=== PATIENT | female | born 1950 | race Caucasian/White ===

== ENCOUNTER → 2016-12-16 | Outpatient (CLI) | payer MEDICARE, BC | LOC: WI 08:04 | PROVIDERS: ATTEND Family Medicine | DX: Z12.31 Encounter for screening mammogram for malignant neoplasm of breast (principal) ==

== ENCOUNTER → 2017-01-13 | Outpatient (CLI) | payer MEDICARE, BC ==
--- NOTE | 2017-01-13 13:00 | WOMENS IMAGING REPORT ---
EXAM DESCRIPTION: U/S BREAST UNILATERAL, COMPL COMPLETED DATE/TIME: 01/13/2017 9:49 am REASON FOR STUDY: ROUTINE SCREENING;Z12.31 Z12.31 ENCNTR SCREEN MAMMOGRAM FOR MALIGNANT NEOPLASM OF JAMIE COMPARISON: Limited bilateral mammograms 07/09/2015, 01/02/2014, 10/10/2012 TECHNIQUE: Real-time and static grayscale imaging performed of the right and left whole breast. Alda cted color Doppler images recorded. The patient is in a motorized wheelchair and unable to participate with positioning for mammography t erika. LIMITATIONS: None. FINDINGS: Entire right breast and entire left breast for image with ultrasound. There is dense fibr oglandular tissue bilaterally without cysts, masses, or worrisome acoustic absorption. No focal find ings. IMPRESSION: No suspicious findings detected in the right or left breast by ultrasound. BIRAD: 1 Negative. RECOMMENDATION: RECOMMENDED FOLLOW-UP: Follow-up as clinically indicated. COMMENT: The [employer] (ACR) has developed recommendations for screening MRI of the breasts in certain patient populations, to be used in conjunction with mammography. Breast MRI s urveillance may be appropriate for women with more than 20% lifetime risk of developing breast cancer as determined by genetic testing, significant family history of the disease, or history of mantle r adiation for Hodgkins Disease. ACR Practice Guidelines 2008. TECHNICAL DOCUMENTATION: JOB ID: [id number] [employer]- All Rights Reserved
--- NOTE | 2017-01-13 13:00 | WOMENS IMAGING REPORT ---
EXAM DESCRIPTION: U/S BREAST UNILATERAL, COMPL COMPLETED DATE/TIME: 01/13/2017 9:49 am REASON FOR STUDY: ROUTINE SCREENING;Z12.31 Z12.31 ENCNTR SCREEN MAMMOGRAM FOR MALIGNANT NEOPLASM OF JAMIE COMPARISON: Limited bilateral mammograms 07/09/2015, 01/02/2014, 10/10/2012 TECHNIQUE: Real-time and static grayscale imaging performed of the right and left whole breast. Alda cted color Doppler images recorded. The patient is in a motorized wheelchair and unable to participate with positioning for mammography t erika. LIMITATIONS: None. FINDINGS: Entire right breast and entire left breast for image with ultrasound. There is dense fibr oglandular tissue bilaterally without cysts, masses, or worrisome acoustic absorption. No focal find ings. IMPRESSION: No suspicious findings detected in the right or left breast by ultrasound. BIRAD: 1 Negative. RECOMMENDATION: RECOMMENDED FOLLOW-UP: Follow-up as clinically indicated. COMMENT: The [employer] (ACR) has developed recommendations for screening MRI of the breasts in certain patient populations, to be used in conjunction with mammography. Breast MRI s urveillance may be appropriate for women with more than 20% lifetime risk of developing breast cancer as determined by genetic testing, significant family history of the disease, or history of mantle r adiation for Hodgkins Disease. ACR Practice Guidelines 2008. TECHNICAL DOCUMENTATION: JOB ID: [id number] [employer]- All Rights Reserved
== END ==
LOC: WI 07:54
PROVIDERS: ATTEND Family Medicine
DX: Z12.31 Encounter for screening mammogram for malignant neoplasm of breast (principal)
CPT/HCPCS: 76641

== ENCOUNTER 2018-04-30 15:41 | Inpatient (IN) | payer MEDICARE, BC ==
[2018-04-30] MEDS ORDERED: ONDANSETRON HCL INJ/PF 4 MG/2 ML SDV IV ONE ×2 (16:24→21:45)
[2018-04-30] MEDS ORDERED: NORMAL SALINE 1000 ML 1,000 ML IV ONE (16:24)
--- NOTE | 2018-04-30 17:29 | RADIOLOGY REPORT (SQ) ---
EXAM DESCRIPTION: CHEST SINGLE VIEW COMPLETED DATE/TIME: 04/30/2018 5:17 pm REASON FOR STUDY: abd bloating, vomiting COMPARISON: 03/13/2014 EXAM PARAMETERS: NUMBER OF VIEWS: 10 obscures the upper chest. TECHNIQUE: Single frontal radiographic view of the chest acquired. RADIATION DOSE: NA LIMITATIONS: None. FINDINGS: LUNGS AND PLEURA: Basilar atelectasis. MEDIASTINUM AND HILAR STRUCTURES: Large retrocardiac hiatal hernia. HEART AND VASCULAR STRUCTURES: Heart normal in size. Normal vasculature. BONES: No acute findings. HARDWARE: None in the chest. OTHER: No other significant finding. IMPRESSION: Basilar atelectasis. Large hiatal hernia. TECHNICAL DOCUMENTATION: JOB ID: [id number] [employer]- All Rights Reserved Reading location - IP/workstation name: [email or web address]
--- NOTE | 2018-04-30 17:48 | RADIOLOGY REPORT (SQ) ---
EXAM DESCRIPTION: CT ABD/PELVIS NO ORAL OR IV COMPLETED DATE/TIME: 04/30/2018 5:12 pm REASON FOR STUDY: abd bloating, vomiting COMPARISON: None. TECHNIQUE: CT scan of the abdomen and pelvis performed without intravenous or oral contrast. Images reviewed with lung, soft tissue, and bone windows. Reconstructed coronal and sagittal MPR images revi ewed. All images stored on PACS. All CT scanners at this facility use dose modulation, iterative reconstruction, and/or weight based d osing when appropriate to reduce radiation dose to as low as reasonably achievable (ALARA). [facility]: Dose Right [facility]: CareDose [facility]: Dose Right [facility]: Teradose 4D [facility]: Smart Rightware [place] RADIATION DOSE: CT Rad equipment meets quality standard of care and radiation dose reduction techniq ues were employed. CTDIvol: 6.4 mGy. DLP: 272 mGy-cm.mGy. LIMITATIONS: None. FINDINGS: LOWER CHEST: There is a large hiatal hernia with an intrathoracic stomach. Atelectatic ch anges are seen at the bilateral lung bases. Tree-in-bud opacities are noted at the right middle lobe . NON-CONTRASTED LIVER, SPLEEN, ADRENALS: Evaluation limited by lack of IV contrast. No identified sign ificant masses. Calcific foci at the spleen are probably granulomas PANCREAS: No peripancreatic inflammatory changes. GALLBLADDER: The gallbladder is distended. Multiple small stones are seen at the gallbladder. RIGHT KIDNEY AND URETER: Assessment for masses limited by lack of IV contrast. No significant calci fications. No hydronephrosis or hydroureter. LEFT KIDNEY AND URETER: Assessment for masses limited by lack of IV contrast. No significant calcif ications. No hydronephrosis or hydroureter. AORTA AND RETROPERITONEUM: No abdominal aortic aneurysm. No retroperitoneal hemorrhage or adenopathy. BOWEL AND PERITONEAL CAVITY: There are multiple dilated small bowel loops with air-fluid levels. Col lapsed loops of small bowel are seen in the pelvis. There is a left lower quadrant ostomy with a par astomal hernia containing a mildly dilated small bowel loop. Postsurgical changes are seen at bowel loops in the pelvis. Trace free fluid noted at the right upper quadrant. APPENDIX: Not visualized. PELVIS, BLADDER, AND ABDOMINAL WALL:The urinary bladder is surgically absent. Coarse calcifications noted at the pelvis. No free fluid. There is a right lower quadrant ostomy. BONES: There is diffuse osteopenia. There is thoracolumbar scoliosis. There is fusion of the left h ip. IMPRESSION: 1. Air-fluid levels within multiple dilated small bowel loops, raise concern for distal small bowel obstruction. Left lower quadrant ostomy with a parastomal hernia containing a mildly di lated small bowel loop. 2. Distended gallbladder with cholelithiasis. 3. Trace ascites at the right upper quadrant. 4. Large hiatal hernia with an intrathoracic stomach. 5. Tree-in-bud opacities at the right middle lobe, may be secondary to acute infection/inflammation o f the smaller airways. COMMENT: Quality ID # [id number]: Final reports with documentation of one or more dose reduction techniques (e.g., Automated exposure control, adjustment of the mA and/or kV according to patient size, use of iterative reconstruction technique) TECHNICAL DOCUMENTATION: JOB ID: [id number] [employer]- All Rights Reserved Reading location - IP/workstation name: [email or web address]
[2018-04-30] MEDS ORDERED: ONDANSETRON HCL INJ/PF 4 MG/2 ML SDV ONE ×2 (18:33→21:42)
[2018-04-30 18:38] LABS: HEMATOCRIT 42.6 % (36.0-47.0); HEMOGLOBIN 13.9 g/dL (12.0-15.5); MEAN CORPUSCULAR HGB CONC 32.6 g/dL (32.0-36.0); MEAN CORPUSCULAR VOLUME 86 fl (80-97); PLATELET COUNT 513 10^3/uL (150-450); RED BLOOD COUNT 4.96 10^6/uL (3.72-5.28); RED CELL DISTRIBUTION WIDTH 14.7 % (11.5-14.0); WHITE BLOOD COUNT 21.3 10^3/uL (4.0-10.5)
[2018-04-30 18:48] LABS: ALANINE AMINOTRANSFERASE 25 U/L (9-52); ALBUMIN 3.7 g/dL (3.5-5.0); ALKALINE PHOSPHATASE 129 U/L (38-126); ANION GAP 11 (5-19); ASPARTATE AMINO TRANSFERASE 21 U/L (14-36); BILIRUBIN,DIRECT 0.6 mg/dL (0.0-0.4); BILIRUBIN,TOTAL 0.8 mg/dL (0.2-1.3); BLOOD UREA NITROGEN 10 mg/dL (7-20); CALCIUM 9.6 mg/dL (8.4-10.2); CARBON DIOXIDE 26 mmol/L (22-30); CHLORIDE 100 mmol/L (98-107); GLUCOSE 116 mg/dL (75-110); LIPASE 15.9 U/L (23-300); POTASSIUM 3.8 mmol/L (3.6-5.0); SODIUM 137.3 mmol/L (137-145); TOTAL PROTEIN 6.9 g/dL (6.3-8.2)
[2018-04-30 18:54] LABS: ABSOLUTE LYMPHOCYTES# (MANUAL) 2.3 10^3/uL (0.5-4.7); ABSOLUTE MONOCYTES # (MANUAL) 0.6 10^3/uL (0.1-1.4); ABSOLUTE NEUTROPHILS# (MANUAL) 18.1 10^3/uL (1.7-8.2); BASOPHILS % (MANUAL) 0 % (0-2); EOSINOPHILS % (MANUAL) 1 % (0-6); LYMPHOCYTES % (MANUAL) 9 % (13-45); MONOCYTES % (MANUAL) 3 % (3-13); SEGMENTED NEUTROPHILS % (MAN) 85 % (42-78); TOTAL CELLS COUNTED 100
[2018-04-30 18:57] LABS: TOXIC GRANULATION 1+
[2018-04-30 18:58] LABS: HYPOCHROMASIA SLIGHT; PLATELET COMMENT INCREASED
[2018-04-30] MEDS ORDERED: CEFEPIME 1 GM/D5W RTU 1 GM/50 ML RTUPB IV ONE (19:47)
[2018-04-30] MEDS ORDERED: VANCOMYCIN HCL INJ 1000 MG VIAL IV ONE (19:48)
--- NOTE | 2018-04-30 20:10 | PDOC CONSULTATION ---
Consultation Consult Date: 04/30/18 Consult reason:: Possible bowel obstruction seen on CT scan. History of Present Illness Admission Date/PCP: NAA ALDANA MD History of Present Illness: ANIKET GARCIA is a 67 year old female seen in consultation at the request of the emergency room physician. This is a patient with cerebral palsy who reports coughing and vomiting. The patient has reported malaise and fatigue for the last several days. The patient has a left lower quadrant descending colostomy. The patient has emptied her colostomy bag 4 times today. There is currently air in the bag. The patient reports vomiting after severe coughing spells. The patient has not noticed significant fevers or chills. The patient denies chest pain, abdominal pain, dizziness, blurry vision. The patient does report lower extremity edema. She denies specific food intolerances. Past Medical History Cardiac Medical History: Reports: Atrial Fibrillation, Hypertension Pulmonary Medical History: Reports: Asthma, Chronic Obstructive Pulmonary Disease (COPD) Denies: Tuberculosis Neurological Medical History: Reports: Other - Cerebral palsy Denies: Seizures GI Medical History: Reports: Gastroesophageal Reflux Disease, Hiatal Hernia Psychiatric Medical History: Reports: Depression Past Surgical History Past Surgical History: Reports: Orthopedic Surgery - multiple ortho surgeries rt cp, Other - Left lower quadrant colostomy. Urostomy. Denies: Hysterectomy Social History Information Source: Patient Smoking Status: Unknown if Ever Smoked Frequency of Alcohol Use: None Hx Recreational Drug Use: No Hx Prescription Drug Abuse: No Family History Family History: Reviewed & Not Pertinent Parental Family History Reviewed: Yes Children Family History Reviewed: Yes Sibling(s) Family History Reviewed.: Yes Medication/Allergy Home Medications: Celecoxib [Celebrex 100 mg Capsule] 100 mg PO BID 02/09/13 Oxybutynin Chloride [Ditropan 5 mg Tablet] 10 mg PO Q8 PRN 02/09/13 Cyclobenzaprine HCl [Flexeril 10 mg Tablet] 20 mg PO TID PRN 02/10/13 Tramadol HCl [Ultram 50 mg Tablet] 50 mg PO Q6HP PRN 02/10/13 Diltiazem HCl [Cardizem Cd 180 mg Capsule] 180 mg PO Q12H 02/12/13 Duloxetine HCl [Cymbalta 30 mg Capsule.dr] 60 mg PO DAILY #0 capsule.dr Topiramate [Topamax 25 mg Tablet] 25 mg PO Q6 #0 tablet 02/12/13 Buprenorphine [Butrans] 1 each TD Q7D 03/11/14 Cetirizine HCl [Zyrtec 10 mg Tablet] 1 tab PO DAILY 03/11/14 Esomeprazole Magnesium [Nexium] 40 mg PO BID 03/11/14 Ferrous Sulfate [Iron Supplement] 325 mg PO BID 03/11/14 Linaclotide [Linzess 145 Mcg Capsule] 145 mcg PO Q2D 03/11/14 Lubiprostone [Amitiza 8 Mcg Capsule] 1 cap PO BID 03/11/14 Mometasone Furoate [Nasonex] 2 spray NS DAILY 03/11/14 Montelukast Sodium [Singulair 10 mg Tablet] 10 mg PO QHS 03/11/14 Polyethylene Glycol 3350 [Clearlax] 119 gm PO DAILY 03/11/14 Polyethylene Glycol 3350 [Miralax Powder 17 gm/Packet] 1 packet PO DAILY Albuterol Sulfate [Ventolin Hfa] 2 puff IH Q6HP PRN 03/12/14 Butalb/Acetaminophen/Caffeine [Fioricet (50-325-40 mg) Tablet] 1 tab PO Q6HP PRN 03/12/14 Diazepam [Valium 5 mg Tablet] 10 mg PO BIDP PRN 03/12/14 Fluticasone/Salmeterol [Advair 500-50 Diskus 28 Dose] 1 inh IH Q12H 03/12/14 Guaifenesin [Mucinex Sr 600 mg Tablet.sa] 600 mg PO Q12 PRN 03/12/14 Magnesium Citrate 296 ml PO DAILY PRN 03/12/14 Oxycodone HCl 5 mg PO Q8H PRN 03/12/14 Oxycodone HCl/Acetaminophen [Percocet 5-325 mg Tablet] 1 - 2 tab PO ASDIR PRN Rizatriptan Benzoate [Maxalt Restorative Care Technician] 10 mg PO DAILY PRN 03/12/14 Trazodone HCl 50 mg PO QHS PRN 03/12/14 Fluticasone/Salmeterol [Advair 250-50 Diskus 14 Dose/Diskus] 1 inh IH Q12 #0 inhaler 03/14/14 Moxifloxacin HCl 400 mg PO DAILY #10 tablet 03/14/14 Allergies/Adverse Reactions: morphine [Morphine] Adverse Reaction (Verified 03/11/14 10:58) Review of Systems Constitutional: PRESENT: fatigue, weakness. ABSENT: anorexia, fever(s), headache(s), night sweats Eyes: ABSENT: visual disturbances Ears: ABSENT: hearing changes Nose, Mouth, and Throat: ABSENT: sore throat Cardiovascular: ABSENT: palpitations Respiratory: PRESENT: cough. ABSENT: hemoptysis Gastrointestinal: ABSENT: abdominal pain, bloating Genitourinary: PRESENT: other - Urostomy Musculoskeletal: ABSENT: back pain Integumentary: ABSENT: pruritus, rash Neurological: ABSENT: confusion, convulsions, dizziness Psychiatric: ABSENT: anxiety, depression Endocrine: ABSENT: cold intolerance, heat intolerance Hematologic/Lymphatic: ABSENT: easy bleeding, easy bruising Physical Exam Vital Signs: Intake & Output 04/29/18 04/30/18 05/01/18 06:59 06:59 06:59 Weight 45.359 kg General appearance: ABSENT: no acute distress Head exam: PRESENT: atraumatic Eye exam: PRESENT: EOMI, PERRLA. ABSENT: scleral icterus Mouth exam: PRESENT: moist, neck supple Neck exam: ABSENT: meningismus, tenderness, thyromegaly, tracheal deviation Respiratory exam: PRESENT: rhonchi, unlabored. ABSENT: chest wall tenderness Cardiovascular exam: PRESENT: irregular rhythm GI/Abdominal exam: PRESENT: soft, other - Left lower quadrant colostomy in place. Air in the bag. Lower midline urostomy in place.. ABSENT: distended, firm, guarding, tenderness Rectal exam: PRESENT: deferred Extremities exam: PRESENT: pedal edema, +2 edema, other - Gaiter sign. Musculoskeletal exam: PRESENT: deformity Neurological exam: PRESENT: alert, awake, oriented to person, oriented to place , oriented to time, oriented to situation Psychiatric exam: ABSENT: agitated, anxious, depressed Skin exam: ABSENT: cyanosis, erythema Results Laboratory Results: 04/30/18 18:25 04/30/18 18:25 04/30/18 04/30/18 18:25 18:25 WBC 21.3 H RBC 4.96 Hgb 13.9 Hct 42.6 MCV 86 MCH 28.0 MCHC 32.6 RDW 14.7 H Plt Count 513 H Seg Neutrophils % Not Reportable Lymphocytes % Not Reportable Monocytes % Not Reportable Eosinophils % Not Reportable Basophils % Not Reportable Absolute Neutrophils Not Reportable Absolute Lymphocytes Not Reportable Absolute Monocytes Not Reportable Absolute Eosinophils Not Reportable Absolute Basophils Not Reportable Sodium 137.3 Potassium 3.8 Chloride 100 Carbon Dioxide 26 Anion Gap 11 BUN 10 Creatinine 0.44 L Est GFR ( Amer) > 60 Est GFR (Non-Af Amer) > 60 Glucose 116 H Calcium 9.6 Total Bilirubin 0.8 AST 21 ALT 25 Alkaline Phosphatase 129 H Total Protein 6.9 Albumin 3.7 Lipase 15.9 L Impressions: Chest X-Ray 04/30/18 00:00 IMPRESSION: Basilar atelectasis. Large hiatal hernia. Abdomen/Pelvis CT 04/30/18 16:54 IMPRESSION: 1. Air-fluid levels within multiple dilated small bowel loops, raise concern for distal small bowel obstruction. Left lower quadrant ostomy with a parastomal hernia containing a mildly dilated small bowel loop. 2. Distended gallbladder with cholelithiasis. 3. Trace ascites at the right upper quadrant. 4. Large hiatal hernia with an intrathoracic stomach. 5. Tree-in-bud opacities at the right middle lobe, may be secondary to acute infection/inflammation of the smaller airways. Assessment & Plan - Diagnosis (1) Cerebral palsy Qualifiers: Cerebral palsy type: unspecified type Qualified Code(s): G80.9 - Cerebral palsy, unspecified Is this a current diagnosis for this admission?: Yes (2) Cough Is this a current diagnosis for this admission?: Yes - Plan Summary Plan Summary: This is a 67-year-old female with cerebral palsy. I was consulted to evaluate the possibility of a small bowel obstruction. I see no clinical or radiographic evidence of small bowel obstruction or large bowel obstruction. The "decompressed loops of small bowel in the pelvis" are related to the patient 's urostomy and not in continuity with the GI tract. The patient has air in her colostomy bag and has had multiple bowel movements today. I believe her vomiting is related to her coughing spells. Recommend medical evaluation. No indication for surgical intervention at this time.
[2018-04-30] MEDS ORDERED: DILTIAZEM HCL INJ 25 MG/5 ML VIAL IV ONE (20:18)
[2018-04-30] MEDS ORDERED: IPRATROPIUM/ALBUTEROL 0.5-2.5 MG/3 ML AMPUL NEB PRN (20:19)
[2018-04-30] MEDS ORDERED: GUAIFENESIN SYRP 200 MG/10 ML UDC PO PRN (20:19)
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
[2018-04-30] MEDS ORDERED: NORMAL SALINE 1000 ML 1,000 ML IV SCH (20:30)
[2018-04-30 21:29] LABS: AMORPHOUS SEDIMENT,URINE TRACE /HPF
[2018-04-30] MEDS: HEPARIN SOD (PORCINE) 5,000 UNIT/ML 1 ML SYRINGE SUBCUT SCH (21:30)
[2018-04-30 21:50] LABS: APPEARANCE,URINE CLEAR; BILIRUBIN,URINE NEGATIVE (NEGATIVE); COLOR,URINE YELLOW; GLUCOSE, URINE NEGATIVE (NEGATIVE)
[2018-04-30 21:51] LABS: KETONES,URINE 300 mg/dL (NEGATIVE); NITRITE,URINE NEGATIVE (NEGATIVE); PROTEIN,URINE NEGATIVE (NEGATIVE); URINE SPECIFIC GRAVITY 1.021; UROBILINOGEN,URINE NEGATIVE mg/dL (<2.0)
[2018-04-30 21:52] LABS: LEUKOCYTE ESTERASE,URINE NEGATIVE (NEGATIVE)
[2018-04-30] MEDS: IPRATROPIUM/ALBUTEROL 0.5-2.5 MG/3 ML AMPUL NEB SCH (23:55)
[2018-05-01] MEDS: TRAZODONE HCL 50 MG TABLET PO PRN (00:46)
[2018-05-01] MEDS: TRAMADOL HCL 50 MG TABLET PO PRN (00:46)
[2018-05-01] MEDS: CEFEPIME 2 GM/D5W RTU 2 GM/50 ML RTUPB IV SCH ×3 (01:08→23:36)
[2018-05-01] MEDS: DILTIAZEM HCL 180 MG CAPSULE.CR PO SCH ×3 (01:27→10:08)
[2018-05-01] MEDS: NORMAL SALINE 1000 ML 1,000 ML IV PRN ×2 (01:29→06:49)
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
[2018-05-01 05:44] LABS: ABSOLUTE BASOPHILS # (AUTO) 0.1 10^3/uL (0.0-0.2); ABSOLUTE EOSINOPHILS # (AUTO) 0.1 10^3/uL (0.0-0.6); ABSOLUTE LYMPHOCYTES (AUTO) 2.2 10^3/uL (0.5-4.7); ABSOLUTE NEUT (AUTO) 11.1 10^3/uL (1.7-8.2); BASOPHILS % (AUTO) 0.6 % (0-2); EOSINOPHILS % (AUTO) 0.9 % (0-6); HEMATOCRIT 36.4 % (36.0-47.0); MEAN CORPUSCULAR HEMOGLOBIN 28.3 pg (27.0-33.4); MEAN CORPUSCULAR VOLUME 86 fl (80-97); PLATELET COUNT 378 10^3/uL (150-450); RED BLOOD COUNT 4.26 10^6/uL (3.72-5.28); RED CELL DISTRIBUTION WIDTH 14.4 % (11.5-14.0); SEGMENTED NEUTROPHILS % (AUTO) 76.5 % (42-78); TOTAL CELLS COUNTED % (AUTO) 100 %; WHITE BLOOD COUNT 14.6 10^3/uL (4.0-10.5)
[2018-05-01 06:09] LABS: ANION GAP 7 (5-19); BLOOD UREA NITROGEN 9 mg/dL (7-20); CALCIUM 8.5 mg/dL (8.4-10.2); CARBON DIOXIDE 23 mmol/L (22-30); CHLORIDE 109 mmol/L (98-107); GLUCOSE 86 mg/dL (75-110); POTASSIUM 3.5 mmol/L (3.6-5.0); SODIUM 138.8 mmol/L (137-145)
[2018-05-01] MEDS: HEPARIN SOD (PORCINE) 5,000 UNIT/ML 1 ML SYRINGE SUBCUT SCH ×3 (06:49→23:35)
[2018-05-01] MEDS: IPRATROPIUM/ALBUTEROL 0.5-2.5 MG/3 ML AMPUL NEB SCH ×2 (08:10→16:57)
--- NOTE | 2018-05-01 14:52 | PDOC PROGRESS REPORT ---
Subjective Progress Note for:: 05/01/18 Subjective:: 67 y/o F admitted with pneumonia and cough. She denies any abdominal pain. Her colostomy is functioning normally. She has not had any vomiting today. No CP, SOB, F/C, melena, dizziness. Reason For Visit: PNEUMONIA Physical Exam Vital Signs: Temp Pulse Resp BP Pulse Ox 98.6 F 102 H 16 140/77 H 98 05/01/18 11:20 05/01/18 11:20 05/01/18 11:20 05/01/18 11:20 05/01/18 11:20 Intake & Output 04/30/18 05/01/18 05/02/18 06:59 06:59 06:59 Intake Total 1100 1050 Balance 1100 1050 Weight 47.7 kg General appearance: PRESENT: no acute distress Head exam: PRESENT: atraumatic Eye exam: PRESENT: EOMI. ABSENT: scleral icterus Mouth exam: PRESENT: moist Neck exam: ABSENT: lymphadenopathy, tenderness Respiratory exam: PRESENT: unlabored. ABSENT: accessory muscle use, chest wall tenderness, tachypnea Cardiovascular exam: PRESENT: irregular rhythm Pulses: PRESENT: normal radial pulses Vascular exam: PRESENT: normal capillary refill. ABSENT: pallor GI/Abdominal exam: PRESENT: soft. ABSENT: distended, guarding, tenderness Rectal exam: PRESENT: deferred Musculoskeletal exam: PRESENT: deformity Neurological exam: PRESENT: alert, awake, oriented to person, oriented to place , oriented to time, oriented to situation Psychiatric exam: ABSENT: agitated, anxious, depressed Skin exam: ABSENT: cyanosis, erythema, jaundice Results Laboratory Results: 05/01/18 04:36 05/01/18 04:36 04/30/18 05/01/18 05/01/18 20:52 04:36 04:36 WBC 14.6 H RBC 4.26 Hgb 12.0 Hct 36.4 MCV 86 MCH 28.3 MCHC 33.0 RDW 14.4 H Plt Count 378 Seg Neutrophils % 76.5 Lymphocytes % 15.0 Monocytes % 7.0 Eosinophils % 0.9 Basophils % 0.6 Absolute Neutrophils 11.1 H Absolute Lymphocytes 2.2 Absolute Monocytes 1.0 Absolute Eosinophils 0.1 Absolute Basophils 0.1 Sodium 138.8 Potassium 3.5 L Chloride 109 H Carbon Dioxide 23 Anion Gap 7 BUN 9 Creatinine 0.38 L Est GFR ( Amer) > 60 Est GFR (Non-Af Amer) > 60 Glucose 86 Calcium 8.5 Urine Color YELLOW Urine Appearance CLEAR Urine pH 6.0 Ur Specific [place] 1.021 Urine Protein NEGATIVE Urine Glucose (UA) NEGATIVE Urine Ketones 300 H Urine Blood NEGATIVE Urine Nitrite NEGATIVE Ur Leukocyte Esterase NEGATIVE Urine WBC (Auto) 133 Urine RBC (Auto) 1 05/01/18 04:36 NT-Pro-B Natriuret Pep 254 Impressions: Chest X-Ray 04/30/18 00:00 IMPRESSION: Basilar atelectasis. Large hiatal hernia. Abdomen/Pelvis CT 04/30/18 16:54 IMPRESSION: 1. Air-fluid levels within multiple dilated small bowel loops, raise concern for distal small bowel obstruction. Left lower quadrant ostomy with a parastomal hernia containing a mildly dilated small bowel loop. 2. Distended gallbladder with cholelithiasis. 3. Trace ascites at the right upper quadrant. 4. Large hiatal hernia with an intrathoracic stomach. 5. Tree-in-bud opacities at the right middle lobe, may be secondary to acute infection/inflammation of the smaller airways. Assessment & Plan - Diagnosis (1) Cerebral palsy Qualifiers: Cerebral palsy type: unspecified type Qualified Code(s): G80.9 - Cerebral palsy, unspecified Is this a current diagnosis for this admission?: Yes (2) Cough Is this a current diagnosis for this admission?: Yes - Plan Summary Plan Summary: 67 y/o F with concern for bowel obstruction on CT. Colostomy functioning normally. No nausea overnight. No abdominal tenderness. Still has cough. OK for diet. No surgical intervention at this time.
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
[2018-05-01] MEDS: ONDANSETRON HCL INJ/PF 4 MG/2 ML SDV IV PRN ×2 (16:31→23:09)
[2018-05-01] MEDS: OXYCODONE HCL IR 5 MG TABLET PO PRN (19:11)
[2018-05-02] MEDS: TRAZODONE HCL 50 MG TABLET PO PRN ×2 (00:52→21:56)
[2018-05-02] MEDS: IPRATROPIUM/ALBUTEROL 0.5-2.5 MG/3 ML AMPUL NEB SCH ×4 (02:03→23:53)
[2018-05-02 05:36] LABS: ABSOLUTE BASOPHILS # (AUTO) 0.1 10^3/uL (0.0-0.2); ABSOLUTE EOSINOPHILS # (AUTO) 0.1 10^3/uL (0.0-0.6); ABSOLUTE LYMPHOCYTES (AUTO) 1.3 10^3/uL (0.5-4.7); ABSOLUTE MONOCYTES (AUTO) 0.8 10^3/uL (0.1-1.4); ABSOLUTE NEUT (AUTO) 11.2 10^3/uL (1.7-8.2); BASOPHILS % (AUTO) 0.8 % (0-2); EOSINOPHILS % (AUTO) 0.4 % (0-6); HEMATOCRIT 36.4 % (36.0-47.0); HEMOGLOBIN 12.2 g/dL (12.0-15.5); LYMPHOCYTES % (AUTO) 9.8 % (13-45); MEAN CORPUSCULAR HEMOGLOBIN 28.5 pg (27.0-33.4); MEAN CORPUSCULAR HGB CONC 33.4 g/dL (32.0-36.0); MEAN CORPUSCULAR VOLUME 85 fl (80-97); MONOCYTES % (AUTO) 5.7 % (3-13); PLATELET COUNT 478 10^3/uL (150-450); RED BLOOD COUNT 4.28 10^6/uL (3.72-5.28); RED CELL DISTRIBUTION WIDTH 14.3 % (11.5-14.0); SEGMENTED NEUTROPHILS % (AUTO) 83.3 % (42-78); TOTAL CELLS COUNTED % (AUTO) 100 %; WHITE BLOOD COUNT 13.5 10^3/uL (4.0-10.5)
[2018-05-02] MEDS: HEPARIN SOD (PORCINE) 5,000 UNIT/ML 1 ML SYRINGE SUBCUT SCH ×3 (05:52→21:50)
[2018-05-02] MEDS: OXYCODONE HCL IR 5 MG TABLET PO PRN (05:53)
[2018-05-02 06:14] LABS: ANION GAP 13 (5-19); BLOOD UREA NITROGEN 6 mg/dL (7-20); CALCIUM 9.5 mg/dL (8.4-10.2); CARBON DIOXIDE 20 mmol/L (22-30); CHLORIDE 108 mmol/L (98-107); GLUCOSE 110 mg/dL (75-110); POTASSIUM 3.1 mmol/L (3.6-5.0); SODIUM 140.9 mmol/L (137-145)
[2018-05-02] MEDS: ONDANSETRON HCL INJ/PF 4 MG/2 ML SDV IV PRN ×2 (08:15→18:33)
[2018-05-02] MEDS ORDERED: DEXTROSE 5%-1/2 NORMAL SALINE 1,000 ML IV PRN (08:16)
[2018-05-02] MEDS ORDERED: POTASSIUM CHLORIDE 10 MEQ CAPSULE.ER PO ONE (09:00)
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
[2018-05-02] MEDS: CEFEPIME 2 GM/D5W RTU 2 GM/50 ML RTUPB IV SCH ×2 (10:31→21:51)
[2018-05-02] MEDS ORDERED: POTASSI CL 20 MEQ/50 ML RIDER 20 MEQ/50 ML RTUPB IV SCH (11:00)
[2018-05-02] MEDS: POTASSIUM CHLORIDE 20 MEQ/50 ML RTU IV SCH ×4 (12:09→20:10)
[2018-05-02] MEDS ORDERED: GLUCAGON,HUMAN RECOMB 1 MG INJ SUBCUT PRN (16:33)
[2018-05-02] MEDS ORDERED: DEXTROSE 40% GEL 15 GM TUBE PO PRN ×2 (16:33)
[2018-05-02] MEDS ORDERED: DEXTROSE 50%-WATER 25 GM/50 ML DISP.SYRIN IV PRN ×2 (16:33)
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
[2018-05-02] MEDS: BACLOFEN 10 MG TABLET PO SCH (17:16)
[2018-05-02] MEDS: NYSTATIN 500000 UNIT/5 ML UDCUP PO SCH (17:23)
[2018-05-02] MEDS: LANSOPRAZOLE 30 MG TAB.RAP.DR PO SCH (17:24)
--- NOTE | 2018-05-02 18:00 | PDOC PROGRESS REPORT ---
Subjective Progress Note for:: 05/02/18 Subjective:: nausea and vomiting with mild RUQ pains Reason For Visit: PNEUMONIA Physical Exam Vital Signs: Temp Pulse Resp BP Pulse Ox 98.7 F 120 H 20 147/86 H 97 05/02/18 11:53 05/02/18 14:00 05/02/18 11:53 05/02/18 11:53 05/02/18 11:53 Intake & Output 05/01/18 05/02/18 05/03/18 06:59 06:59 06:59 Intake Total 1100 1938 150 Output Total 1650 Balance 1100 288 150 Weight 47.7 kg 48.6 kg Exam: abd is soft with mild RUQ tenderness. Results Laboratory Results: 05/02/18 04:39 05/02/18 04:39 05/02/18 05/02/18 05/02/18 04:39 04:39 04:39 WBC 13.5 H RBC 4.28 Hgb 12.2 Hct 36.4 MCV 85 MCH 28.5 MCHC 33.4 RDW 14.3 H Plt Count 478 H Seg Neutrophils % 83.3 H Lymphocytes % 9.8 L Monocytes % 5.7 Eosinophils % 0.4 Basophils % 0.8 Absolute Neutrophils 11.2 H Absolute Lymphocytes 1.3 Absolute Monocytes 0.8 Absolute Eosinophils 0.1 Absolute Basophils 0.1 Sodium 140.9 Potassium 3.1 L Chloride 108 H Carbon Dioxide 20 L Anion Gap 13 BUN 6 L Creatinine 0.39 L Est GFR ( Amer) > 60 Est GFR (Non-Af Amer) > 60 Glucose 110 Calcium 9.5 Magnesium 2.0 05/01/18 04:36 NT-Pro-B Natriuret Pep 254 Impressions: Chest X-Ray 04/30/18 00:00 IMPRESSION: Basilar atelectasis. Large hiatal hernia. Abdomen/Pelvis CT 04/30/18 16:54 IMPRESSION: 1. Air-fluid levels within multiple dilated small bowel loops, raise concern for distal small bowel obstruction. Left lower quadrant ostomy with a parastomal hernia containing a mildly dilated small bowel loop. 2. Distended gallbladder with cholelithiasis. 3. Trace ascites at the right upper quadrant. 4. Large hiatal hernia with an intrathoracic stomach. 5. Tree-in-bud opacities at the right middle lobe, may be secondary to acute infection/inflammation of the smaller airways. KUB X-Ray 05/02/18 00:00 IMPRESSION: Slight improvement in the small bowel obstruction. Assessment & Plan - Diagnosis (1) Cholelithiasis Is this a current diagnosis for this admission?: Yes - Time Time Spent with patient: 15-24 minutes - Inpatient Certification Medical Necessity: Significant Comorbidiites Make Outpatient Treatment Too Risky , Need For IV Fluids, Risk of Complication if Not Cared For in Hospital - Plan Summary Plan Summary: Need to R/O acute cholecystitis with HIDA scan. Hopefully can be done tomorrow unless patient improves clinically. KUB shows improving SBO pattern. Not a good surgical candidate with her contracture due to cerebral palsy with Urostomy and colostomy. Continue hydration
[2018-05-02] MEDS: FLUTICASONE/SALMETEROL DISKUS 500-50 MCG/DOSE IH SCH (21:49)
[2018-05-02] MEDS: TOPIRAMATE 25 MG TABLET PO SCH (21:56)
[2018-05-02] MEDS ORDERED: POTASSIUM CHLORIDE 10 MEQ CAPSULE.ER PO SCH (22:00)
[2018-05-02] MEDS: TOBRAMYCIN SULFATE/DEXAMETH OPH OINTMENT 3.5 GM OS SCH (22:02)
[2018-05-03] MEDS: NYSTATIN 500000 UNIT/5 ML UDCUP PO SCH ×4 (00:27→22:42)
[2018-05-03] MEDS: TRAMADOL HCL 50 MG TABLET PO PRN ×3 (00:30→17:58)
[2018-05-03] MEDS: HEPARIN SOD (PORCINE) 5,000 UNIT/ML 1 ML SYRINGE SUBCUT SCH ×3 (05:28→22:43)
[2018-05-03 05:43] LABS: HEMATOCRIT 33.2 % (36.0-47.0); MEAN CORPUSCULAR HEMOGLOBIN 28.2 pg (27.0-33.4); MEAN CORPUSCULAR HGB CONC 33.1 g/dL (32.0-36.0); MEAN CORPUSCULAR VOLUME 85 fl (80-97); PLATELET COUNT 384 10^3/uL (150-450); RED CELL DISTRIBUTION WIDTH 14.1 % (11.5-14.0); WHITE BLOOD COUNT 13.5 10^3/uL (4.0-10.5)
[2018-05-03 06:00] LABS: ANION GAP 7 (5-19); BLOOD UREA NITROGEN 7 mg/dL (7-20); CALCIUM 8.7 mg/dL (8.4-10.2); CARBON DIOXIDE 22 mmol/L (22-30); CHLORIDE 114 mmol/L (98-107); GLUCOSE 87 mg/dL (75-110); SODIUM 142.9 mmol/L (137-145)
[2018-05-03 06:11] LABS: POTASSIUM 4.3 mmol/L (3.6-5.0)
[2018-05-03 06:13] LABS: ABSOLUTE LYMPHOCYTES# (MANUAL) 2.8 10^3/uL (0.5-4.7); ABSOLUTE MONOCYTES # (MANUAL) 1.1 10^3/uL (0.1-1.4); ABSOLUTE NEUTROPHILS# (MANUAL) 9.6 10^3/uL (1.7-8.2); ANISOCYTOSIS SLIGHT; BASOPHILS % (MANUAL) 0 % (0-2); EOSINOPHILS % (MANUAL) 0 % (0-6); LYMPHOCYTES % (MANUAL) 21 % (13-45); MONOCYTES % (MANUAL) 8 % (3-13); POLYCHROMASIA 1+; SEGMENTED NEUTROPHILS % (MAN) 71 % (42-78); TOTAL CELLS COUNTED 100; TOXIC GRANULATION 1+
[2018-05-03 06:14] LABS: PLATELET COMMENT ADEQUATE
[2018-05-03] MEDS: IPRATROPIUM/ALBUTEROL 0.5-2.5 MG/3 ML AMPUL NEB SCH ×3 (08:53→23:40)
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
[2018-05-03] MEDS: CEFEPIME 2 GM/D5W RTU 2 GM/50 ML RTUPB IV SCH ×2 (10:34→22:43)
[2018-05-03] MEDS: FLUTICASONE/SALMETEROL DISKUS 500-50 MCG/DOSE IH SCH ×2 (10:35→22:43)
[2018-05-03] MEDS: BACLOFEN 10 MG TABLET PO SCH ×2 (10:36→17:58)
[2018-05-03] MEDS: TOPIRAMATE 25 MG TABLET PO SCH ×2 (10:36→22:44)
[2018-05-03] MEDS: DULOXETINE HCL 30 MG CAPSULE.DR PO SCH (10:41)
[2018-05-03] MEDS: LANSOPRAZOLE 30 MG TAB.RAP.DR PO SCH ×2 (10:41→17:58)
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
[2018-05-03] MEDS: TRAZODONE HCL 50 MG TABLET PO PRN (22:44)
[2018-05-03] MEDS: TOBRAMYCIN SULFATE/DEXAMETH OPH OINTMENT 3.5 GM OS SCH (22:44)
[2018-05-04] MEDS: HEPARIN SOD (PORCINE) 5,000 UNIT/ML 1 ML SYRINGE SUBCUT SCH ×3 (05:51→21:16)
[2018-05-04] MEDS: NYSTATIN 500000 UNIT/5 ML UDCUP PO SCH ×5 (05:51→23:57)
[2018-05-04] MEDS: IPRATROPIUM/ALBUTEROL 0.5-2.5 MG/3 ML AMPUL NEB SCH ×3 (07:56→23:35)
[2018-05-04] MEDS: CEFEPIME 2 GM/D5W RTU 2 GM/50 ML RTUPB IV SCH ×2 (09:33→21:11)
[2018-05-04] MEDS: DULOXETINE HCL 30 MG CAPSULE.DR PO SCH (09:35)
[2018-05-04] MEDS: TOPIRAMATE 25 MG TABLET PO SCH ×2 (09:35→21:12)
[2018-05-04] MEDS: LANSOPRAZOLE 30 MG TAB.RAP.DR PO SCH ×2 (09:36→16:12)
[2018-05-04] MEDS: FLUTICASONE/SALMETEROL DISKUS 500-50 MCG/DOSE IH SCH ×2 (09:36→21:10)
[2018-05-04] MEDS: BACLOFEN 10 MG TABLET PO SCH ×2 (09:36→17:00)
[2018-05-04] MEDS: TRAMADOL HCL 50 MG TABLET PO PRN (16:12)
[2018-05-04] MEDS: TOBRAMYCIN SULFATE/DEXAMETH OPH OINTMENT 3.5 GM OS SCH (21:11)
[2018-05-04] MEDS: OXYCODONE HCL IR 5 MG TABLET PO PRN (21:12)
[2018-05-04] MEDS: TRAZODONE HCL 50 MG TABLET PO PRN (21:13)
[2018-05-04] MEDS: ACETAMINOPHEN 325 MG TABLET PO PRN (21:13)
[2018-05-05] MEDS: HEPARIN SOD (PORCINE) 5,000 UNIT/ML 1 ML SYRINGE SUBCUT SCH ×3 (05:53→21:41)
[2018-05-05] MEDS: NYSTATIN 500000 UNIT/5 ML UDCUP PO SCH ×3 (05:54→17:13)
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
[2018-05-05] MEDS: TRAMADOL HCL 50 MG TABLET PO PRN (07:58)
[2018-05-05] MEDS: IPRATROPIUM/ALBUTEROL 0.5-2.5 MG/3 ML AMPUL NEB SCH ×2 (08:19→15:44)
[2018-05-05] MEDS: TOPIRAMATE 25 MG TABLET PO SCH ×2 (09:28→21:42)
[2018-05-05] MEDS: BACLOFEN 10 MG TABLET PO SCH ×2 (09:29→17:12)
[2018-05-05] MEDS: DULOXETINE HCL 30 MG CAPSULE.DR PO SCH (09:29)
[2018-05-05] MEDS: FLUTICASONE/SALMETEROL DISKUS 500-50 MCG/DOSE IH SCH ×2 (09:29→21:41)
[2018-05-05] MEDS: LANSOPRAZOLE 30 MG TAB.RAP.DR PO SCH ×2 (09:30→17:12)
[2018-05-05] MEDS: CEFEPIME 2 GM/D5W RTU 2 GM/50 ML RTUPB IV SCH ×2 (09:30→21:42)
[2018-05-05 09:46] LABS: HEMATOCRIT 42.1 % (36.0-47.0); MEAN CORPUSCULAR HEMOGLOBIN 27.8 pg (27.0-33.4); MEAN CORPUSCULAR HGB CONC 32.3 g/dL (32.0-36.0); MEAN CORPUSCULAR VOLUME 86 fl (80-97); PLATELET COUNT 477 10^3/uL (150-450); RED CELL DISTRIBUTION WIDTH 14.7 % (11.5-14.0); WHITE BLOOD COUNT 12.2 10^3/uL (4.0-10.5)
[2018-05-05 09:56] LABS: HEMOGLOBIN 13.6 g/dL (12.0-15.5)
[2018-05-05 10:05] LABS: ANION GAP 10 (5-19); BLOOD UREA NITROGEN 4 mg/dL (7-20); CALCIUM 9.5 mg/dL (8.4-10.2); CARBON DIOXIDE 24 mmol/L (22-30); CHLORIDE 106 mmol/L (98-107); GLUCOSE 116 mg/dL (75-110); SODIUM 139.7 mmol/L (137-145)
[2018-05-05 10:24] LABS: ABSOLUTE LYMPHOCYTES# (MANUAL) 2.7 10^3/uL (0.5-4.7); ABSOLUTE MONOCYTES # (MANUAL) 0.4 10^3/uL (0.1-1.4); ABSOLUTE NEUTROPHILS# (MANUAL) 8.7 10^3/uL (1.7-8.2); BAND NEUTROPHILS % (MANUAL) 2 % (3-5); BASOPHILS % (MANUAL) 1 % (0-2); EOSINOPHILS % (MANUAL) 3 % (0-6); LYMPHOCYTES % (MANUAL) 20 % (13-45); METAMYELOCYTES % (MANUAL) 2 % (0); MONOCYTES % (MANUAL) 3 % (3-13); SEGMENTED NEUTROPHILS % (MAN) 67 % (42-78); TOTAL CELLS COUNTED 100
[2018-05-05 10:25] LABS: PLATELET COMMENT ADEQUATE; POLYCHROMASIA SLIGHT; TOXIC GRANULATION SLIGHT; TOXIC VACUOLATION PRESENT
[2018-05-05] MEDS: POTASSI CL 20 MEQ/50 ML RIDER 20 MEQ/50 ML RTUPB IV SCH ×3 (11:27→15:23)
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
[2018-05-05] MEDS: TRAZODONE HCL 50 MG TABLET PO PRN (21:42)
[2018-05-05] MEDS: TOBRAMYCIN SULFATE/DEXAMETH OPH OINTMENT 3.5 GM OS SCH (21:42)
[2018-05-05] MEDS: OXYCODONE HCL IR 5 MG TABLET PO PRN (21:44)
[2018-05-06] MEDS: IPRATROPIUM/ALBUTEROL 0.5-2.5 MG/3 ML AMPUL NEB SCH ×3 (00:41→16:05)
[2018-05-06] MEDS: ACETAMINOPHEN 325 MG TABLET PO PRN (03:28)
[2018-05-06] MEDS: TRAMADOL HCL 50 MG TABLET PO PRN ×2 (03:28→16:59)
[2018-05-06] MEDS: DIAZEPAM 5 MG TABLET PO PRN (03:29)
[2018-05-06] MEDS: HEPARIN SOD (PORCINE) 5,000 UNIT/ML 1 ML SYRINGE SUBCUT SCH ×3 (05:57→22:04)
[2018-05-06] MEDS: NYSTATIN 500000 UNIT/5 ML UDCUP PO SCH ×5 (06:07→23:53)
[2018-05-06] MEDS: OXYCODONE HCL IR 5 MG TABLET PO PRN ×2 (06:07→20:07)
[2018-05-06] MEDS: LANSOPRAZOLE 30 MG TAB.RAP.DR PO SCH ×2 (08:27→16:59)
[2018-05-06] MEDS: DULOXETINE HCL 30 MG CAPSULE.DR PO SCH (09:07)
[2018-05-06] MEDS: BACLOFEN 10 MG TABLET PO SCH ×2 (09:07→16:59)
[2018-05-06] MEDS: TOPIRAMATE 25 MG TABLET PO SCH ×2 (09:07→22:02)
[2018-05-06] MEDS: FLUTICASONE/SALMETEROL DISKUS 500-50 MCG/DOSE IH SCH ×2 (09:08→22:02)
[2018-05-06] MEDS: CEFEPIME 2 GM/D5W RTU 2 GM/50 ML RTUPB IV SCH ×2 (09:08→22:04)
[2018-05-06] MEDS ORDERED: IPRATROPIUM/ALBUTEROL 0.5-2.5 MG/3 ML AMPUL NEB ONE (09:31)
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
--- NOTE | 2018-05-06 18:40 | Progress Note ---
Provider Note Provider Note: Patient has an ostomy and colostomy bag on exam
[2018-05-06] MEDS: TOBRAMYCIN SULFATE/DEXAMETH OPH OINTMENT 3.5 GM OS SCH (22:02)
[2018-05-07] MEDS: IPRATROPIUM/ALBUTEROL 0.5-2.5 MG/3 ML AMPUL NEB SCH ×4 (00:40→23:24)
[2018-05-07] MEDS: HEPARIN SOD (PORCINE) 5,000 UNIT/ML 1 ML SYRINGE SUBCUT SCH ×3 (05:05→21:46)
[2018-05-07] MEDS: NYSTATIN 500000 UNIT/5 ML UDCUP PO SCH ×4 (05:05→23:04)
[2018-05-07] MEDS: LANSOPRAZOLE 30 MG TAB.RAP.DR PO SCH ×2 (07:25→17:12)
[2018-05-07] MEDS: OXYCODONE HCL IR 5 MG TABLET PO PRN (07:30)
[2018-05-07] MEDS: CEFEPIME 2 GM/D5W RTU 2 GM/50 ML RTUPB IV SCH (10:23)
[2018-05-07] MEDS: BACLOFEN 10 MG TABLET PO SCH ×2 (10:23→17:12)
[2018-05-07] MEDS: FLUTICASONE/SALMETEROL DISKUS 500-50 MCG/DOSE IH SCH ×2 (10:23→21:45)
[2018-05-07] MEDS: DULOXETINE HCL 30 MG CAPSULE.DR PO SCH (10:23)
[2018-05-07] MEDS: TOPIRAMATE 25 MG TABLET PO SCH ×2 (10:24→21:45)
[2018-05-07] MEDS: DIAZEPAM 5 MG TABLET PO PRN (10:26)
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
[2018-05-07] MEDS ORDERED: (PENDING PHARMACY ID) (Diclofenac Sodium [Voltaren] 2 GM) TP SCH (14:00)
[2018-05-07] MEDS: CETIRIZINE 10 MG TABLET PO SCH (21:45)
[2018-05-07] MEDS: MONTELUKAST SODIUM 10 MG TABLET PO SCH (21:46)
[2018-05-07] MEDS: TOBRAMYCIN SULFATE/DEXAMETH OPH OINTMENT 3.5 GM OS SCH (21:46)
[2018-05-08] MEDS: HEPARIN SOD (PORCINE) 5,000 UNIT/ML 1 ML SYRINGE SUBCUT SCH ×3 (05:30→21:24)
[2018-05-08] MEDS: NYSTATIN 500000 UNIT/5 ML UDCUP PO SCH ×4 (05:30→23:35)
[2018-05-08] MEDS: OXYCODONE HCL IR 5 MG TABLET PO PRN ×2 (05:46→15:26)
[2018-05-08 05:54] LABS: ABSOLUTE EOSINOPHILS # (AUTO) 0.4 10^3/uL (0.0-0.6); ABSOLUTE LYMPHOCYTES (AUTO) 2.9 10^3/uL (0.5-4.7); ABSOLUTE NEUT (AUTO) 7.2 10^3/uL (1.7-8.2); BASOPHILS % (AUTO) 0.2 % (0-2); EOSINOPHILS % (AUTO) 3.3 % (0-6); HEMATOCRIT 37.4 % (36.0-47.0); HEMOGLOBIN 12.2 g/dL (12.0-15.5); LYMPHOCYTES % (AUTO) 25.3 % (13-45); MEAN CORPUSCULAR HGB CONC 32.6 g/dL (32.0-36.0); MEAN CORPUSCULAR VOLUME 86 fl (80-97); MONOCYTES % (AUTO) 8.9 % (3-13); PLATELET COUNT 405 10^3/uL (150-450); RED BLOOD COUNT 4.36 10^6/uL (3.72-5.28); RED CELL DISTRIBUTION WIDTH 14.9 % (11.5-14.0); SEGMENTED NEUTROPHILS % (AUTO) 62.3 % (42-78); TOTAL CELLS COUNTED % (AUTO) 100 %; WHITE BLOOD COUNT 11.6 10^3/uL (4.0-10.5)
[2018-05-08 06:12] LABS: ANION GAP 7 (5-19); BLOOD UREA NITROGEN 7 mg/dL (7-20); CALCIUM 9.2 mg/dL (8.4-10.2); CARBON DIOXIDE 25 mmol/L (22-30); CHLORIDE 109 mmol/L (98-107); GLUCOSE 86 mg/dL (75-110); POTASSIUM 3.3 mmol/L (3.6-5.0); SODIUM 140.8 mmol/L (137-145)
[2018-05-08] MEDS: IPRATROPIUM/ALBUTEROL 0.5-2.5 MG/3 ML AMPUL NEB SCH ×2 (08:46→15:59)
[2018-05-08] MEDS ORDERED: POTASSIUM CHLORIDE 10 MEQ CAPSULE.ER PO SCH (09:00)
[2018-05-08] MEDS: LANSOPRAZOLE 30 MG TAB.RAP.DR PO SCH ×2 (10:01→17:34)
[2018-05-08] MEDS: DULOXETINE HCL 30 MG CAPSULE.DR PO SCH (10:02)
[2018-05-08] MEDS: BACLOFEN 10 MG TABLET PO SCH ×2 (10:02→17:34)
[2018-05-08] MEDS: TOPIRAMATE 25 MG TABLET PO SCH ×2 (10:02→21:25)
[2018-05-08] MEDS: FLUTICASONE/SALMETEROL DISKUS 500-50 MCG/DOSE IH SCH ×2 (10:02→21:24)
[2018-05-08] MEDS: POTASSIUM CHLORIDE 20 MEQ/15 ML UDCUP PO SCH ×2 (10:09→17:34)
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
[2018-05-08] MEDS ORDERED: TRAMADOL HCL 50 MG TABLET PO PRN (19:35)
[2018-05-08] MEDS ORDERED: DIAZEPAM 5 MG TABLET PO PRN (19:35)
[2018-05-08] MEDS: MONTELUKAST SODIUM 10 MG TABLET PO SCH (21:24)
[2018-05-08] MEDS: TRAZODONE HCL 50 MG TABLET PO PRN (21:25)
[2018-05-08] MEDS: CETIRIZINE 10 MG TABLET PO SCH (21:25)
[2018-05-08] MEDS: TOBRAMYCIN SULFATE/DEXAMETH OPH OINTMENT 3.5 GM OS SCH (21:26)
[2018-05-09] MEDS: IPRATROPIUM/ALBUTEROL 0.5-2.5 MG/3 ML AMPUL NEB SCH ×2 (00:09→08:38)
[2018-05-09] MEDS: NYSTATIN 500000 UNIT/5 ML UDCUP PO SCH (05:58)
[2018-05-09] MEDS: HEPARIN SOD (PORCINE) 5,000 UNIT/ML 1 ML SYRINGE SUBCUT SCH (05:59)
[2018-05-09] MEDS: OXYCODONE HCL IR 5 MG TABLET PO PRN (05:59)
[2018-05-09 06:17] LABS: HEMATOCRIT 39.7 % (36.0-47.0); HEMOGLOBIN 12.7 g/dL (12.0-15.5); MEAN CORPUSCULAR HGB CONC 31.9 g/dL (32.0-36.0); MEAN CORPUSCULAR VOLUME 88 fl (80-97); PLATELET COUNT 478 10^3/uL (150-450); RED BLOOD COUNT 4.53 10^6/uL (3.72-5.28); RED CELL DISTRIBUTION WIDTH 15.4 % (11.5-14.0); WHITE BLOOD COUNT 11.3 10^3/uL (4.0-10.5)
[2018-05-09] MEDS: LANSOPRAZOLE 30 MG TAB.RAP.DR PO SCH (10:03)
[2018-05-09] MEDS: FLUTICASONE/SALMETEROL DISKUS 500-50 MCG/DOSE IH SCH (10:04)
[2018-05-09] MEDS: BACLOFEN 10 MG TABLET PO SCH (10:04)
[2018-05-09] MEDS: TOPIRAMATE 25 MG TABLET PO SCH (10:04)
[2018-05-09] MEDS: DULOXETINE HCL 30 MG CAPSULE.DR PO SCH (10:04)
[2018-05-09 11:56] VITALS: BP 126/83
== END 2018-05-09 11:50 | disposition home or self-care (01) | DRG 178 ==
LOC: ER 15:41 → EH 20:34 → 4W 23:15 → 5 05-03 19:38
PROVIDERS: ADMIT Internal Medicine; ATTEND Internal Medicine
PROC: 3E0F73Z Introduction of Anti-inflammatory into Respiratory Tract, Via Natural or Artificial Opening (ICD-10-PCS; principal; 2018-04-30)
DX: J69.0 Pneumonitis due to inhalation of food and vomit (principal); K56.0 Paralytic ileus; G80.9 Cerebral palsy, unspecified; K80.20 Calculus of gallbladder without cholecystitis without obstruction; J44.9 Chronic obstructive pulmonary disease, unspecified; K44.9 Diaphragmatic hernia without obstruction or gangrene; I48.91 Unspecified atrial fibrillation; I10 Essential (primary) hypertension; K21.9 Gastro-esophageal reflux disease without esophagitis; F32.9 Major depressive disorder, single episode, unspecified; E34.3 Short stature due to endocrine disorder; E87.6 Hypokalemia; Z93.3 Colostomy status; Z59.1 Inadequate housing; Z79.899 Other long term (current) drug therapy; Z88.6 Allergy status to analgesic agent; Z93.6 Other artificial openings of urinary tract status; Z82.49 Family history of ischemic heart disease and other diseases of the circulatory system
CPT/HCPCS: 36415; 71045; 74018; 74176; 80048; 80053; 81001; 83690; 83735; 83880; 84132; 85025; 85027; 87040; 94640; 94799; 96361; 96374; 99291; G8978-GP; G8979-GP; G8980-GP; J0692; J1644; J2405; J3370; J3480; J3490; J7620